=== PATIENT | female | born 1980 | race African-American/Black ===

== ENCOUNTER 2018-02-16 00:47 | Emergency (ER) | payer SELFPAY, OTHER ==
[2018-02-16] MEDS ORDERED: HYDROcodone/APAP 7.5/325MG 1 TAB TABLET (01:37)
[2018-02-16] MEDS: HYDROcodone/APAP 7.5/325MG 1 TAB TABLET PO (01:41)
== END 2018-02-16 01:42 | disposition home or self-care (01) ==
LOC: ER 00:47
DX: G89.18 Other acute postprocedural pain (principal); K08.89 Other specified disorders of teeth and supporting structures; Z98.890 Other specified postprocedural states; Z88.6 Allergy status to analgesic agent
CPT/HCPCS: 99283

== ENCOUNTER → 2018-07-25 | Outpatient (CLI) | payer BC, OTHER ==
[2018-02-16 01:06] VITALS: BP 133/86
[~2018-07-25] MED LIST: HYDR-2761 PO; HYDR-3164 PO
--- NOTE | 2018-07-25 11:08 | KCIC ---
Pelvic ultrasound 07/25/2018 INDICATION: STD exposure COMPARISON STUDY: Pelvic ultrasound October 27, 2014 Discussion: Ultrasound evaluation of the pelvis was performed transabdominally and transvaginally. Static images are submitted to PACS. Uterus is normal in appearance measuring 8.4 x 4.6 x 5.0 cm. Endometrial endometrium is not thickened. No focal uterine lesions are seen. The ovaries are unremarkable in appearance demonstrating several normal-appearing follicles. Blood flow to the ovaries is normal bilaterally. Right ovary measures 3.9 x 2.1 x 3.2 cm. Left ovary measures 3.7 x 2.7 x 2.8 cm. Scant amount of fluid is seen in the cul-de-sac, most likely physiologic in a premenopausal patient. IMPRESSION: Unremarkable sonographic appearance of the pelvis. Electronically signed by: Chauncey Sheriff MD (07/25/2018 11:04 AM) [id number]
== END | disposition home or self-care (01) ==
LOC: KCIC US 10:13
PROVIDERS: ATTEND Obstetrics & Gynecology
DX: R10.2 Pelvic and perineal pain (principal); Z20.2 Contact with and (suspected) exposure to infections with a predominantly sexual mode of transmission
CPT/HCPCS: 76830; 76856

== ENCOUNTER → 2020-04-21 | Outpatient (CLI) | payer BC, MEDICAID ==
[2018-02-16 01:06] VITALS: BP 133/86
--- NOTE | 2020-04-21 16:20 | RAD ---
DATE: 04/21/2020 10:01 AM EXAM: DIGITAL SCREEN BILAT W/CAD HISTORY: Screening COMPARISON: None available. Bilateral full field craniocaudal and mediolateral oblique images were obtained using digital technique. This study was interpreted with the benefit of Computerized Aided Detection (CAD). FINDINGS: Breast Density: DENSE The breast Parenchyma is dense, which could reduce the sensitivity of mammography. Breast parenchyma level density D. No suspicious masses, microcalcifications or architectural distortion is present to suggest malignancy in either breast. The visualized axillae are unremarkable. IMPRESSION: No mammographic evidence of malignancy. BI-RADS CATEGORY: 1 NEGATIVE RECOMMENDED FOLLOW-UP: 12M 12 MONTH FOLLOW-UP Annual screening mammography is recommended, unless clinically indicated sooner based on symptoms or change in physical exam. PQRS compliance statement: Patient information was entered into a reminder system with a target due date for the next mammogram. Mammography is a sensitive method for finding small breast cancers, but it does not detect them all and is not a substitute for careful clinical examination. A negative mammogram does not negate a clinically suspicious finding and should not result in delay in biopsying a clinically suspicious abnormality. "Our facility is accredited by the [employer] Mammography Program."
== END ==
LOC: MAMMO 09:47
PROVIDERS: ATTEND Obstetrics & Gynecology
DX: Z12.31 Encounter for screening mammogram for malignant neoplasm of breast (principal)
CPT/HCPCS: 77067